=== PATIENT | female | born 1990 | race Two or more races ===

== ENCOUNTER → 2019-02-28 | Outpatient (CLI) | payer OTHER | END | disposition home or self-care (01) | LOC: PRENATAL 08:49 | DX: O26.851 Spotting complicating pregnancy, first trimester (principal); O36.80X1 Pregnancy with inconclusive fetal viability, fetus 1; O28.1 Abnormal biochemical finding on antenatal screening of mother; O30.91 Multiple gestation, unspecified, first trimester; O28.3 Abnormal ultrasonic finding on antenatal screening of mother ==

== ENCOUNTER → 2019-03-01 | Outpatient (CLI) | payer OTHER | END | disposition home or self-care (01) | LOC: PRENATAL 14:00 | DX: O41.8X2 Other specified disorders of amniotic fluid and membranes, second trimester (principal); O30.092 Twin pregnancy, unable to determine number of placenta and number of amniotic sacs, second trimester; O01.9 Hydatidiform mole, unspecified ==

== ENCOUNTER 2019-03-02 12:54 | Outpatient (CLI) | payer OTHER | END 2019-03-02 15:53 | disposition home or self-care (01) | LOC: PRENATAL 12:54 | DX: O28.1 Abnormal biochemical finding on antenatal screening of mother (principal); O30.91 Multiple gestation, unspecified, first trimester ==